=== PATIENT | male | born 1995 | race Caucasian/White ===

== ENCOUNTER 2018-08-28 17:57 | Inpatient (IN) ==
[2018-08-28 22:28] LABS: Baso # (Auto) 0.1 th/mm3 (0.0-0.2); Baso % (Auto) 0.8 % (0.0-2.0); Eos # (Auto) 0.1 th/mm3 (0.0-0.4); Eos % (Auto) 0.6 % (0.0-4.0); Hematocrit 43.4 % (39.0-51.0); Hemoglobin 15.4 gm/dL (13.0-17.0); Lymph # (Auto) 2.5 th/mm3 (1.0-4.8); Lymph % (Auto) 23.1 % (9.0-44.0); Mean Corpuscular HGB Conc 35.4 % (32.0-36.0); Mean Corpuscular Volume 87.6 fL (80.0-100.0); Mean Platelet Volume 10.4 fL (7.0-11.0); Mono % (Auto) 9.3 % (0.0-8.0); Neut # (Auto) 7.2 th/mm3 (1.8-7.7); Neut % (Auto) 66.2 % (16.0-70.0); Platelet Count 272 th/mm3 (150-450); Red Blood Count 4.96 mil/mm3 (4.50-5.90); White Blood Count 10.8 th/mm3 (4.0-11.0)
[2018-08-28 22:29] LABS: Amphetamine Screen,Urine Pos (Neg); Barbiturate Screen,Urine Neg (Neg); Cannabinoid Screen,Urine Neg (Neg); Cocaine Screen,Urine Neg (Neg)
[2018-08-28 22:41] LABS: Opiate Screen,Urine Neg (Neg)
[2018-08-28 22:44] LABS: Albumin 4.2 g/dL (3.4-5.0); Anion Gap 8 meq/L (5-15); Aspartate Aminotransferase 15 U/L (15-37); Blood Urea Nitrogen 14 mg/dL (7-18); Carbon Dioxide 28.4 meq/L (21.0-32.0); Chloride 101 meq/L (98-107); Glomerular Filtration Rate 84 mL/min (>89); Glucose,Random 75 mg/dL (74-106); Potassium 3.7 meq/L (3.5-5.1); Sodium 137 meq/L (136-145)
[2018-08-28 22:45] LABS: Alanine Aminotransferase 23 U/L (12-78)
[2018-08-28 22:48] LABS: Alkaline Phosphatase 83 U/L (45-117); Total Protein 8.1 g/dL (6.4-8.2)
--- NOTE | 2018-08-29 00:32 | ED ---
HPI General Chief Complaint: Psychiatric Symptoms Stated Complaint: Pysch Eval/NSBPD Time Seen by Provider: 08/28/18 19:28 Source: patient and police Mode of arrival: other (Police) Limitations: no limitations History of Present Illness HPI Narrative: Patient presents to our facility under a Clark act. Patient was discharged from our facility after being psychiatrically cleared earlier this morning. Since he got home he took a bottle of his psychiatric medications from his mother and flushed them down the toilet. Mother called the police and police Clark acted him due to him "being a harm to himself". Patient states that he does not want to harm himself or others but just does not want to take his medications because he thinks that they are making him sicker MD complaint: Reports other History of same: Yes Relieving factors: none Exacerbating factors: none Context: Reports not taking psychiatric medications Associated psychiatric symptoms: Denies depression, suicidal ideation, homicidal ideation, racing thoughts, auditory hallucinations and visual hallucinations Associated symptoms: Denies confusion, headache, shortness of breath, nausea, vomiting, syncope and insomnia Related Data Home Medications Medication Instructions Recorded Confirmed amphetamine sulfate 10 mg PO TID 08/28/18 08/28/18 Allergies Allergy/AdvReac Type Severity Reaction Status Date / Time No Known Allergies Allergy Verified 08/27/18 15:18 Review of Systems ROS: all other systems reviewed are negative [facility] Medical History Medical History ADD (attention deficit disorder) (Acute) Hearing voices (Acute) Social History Social History Substance History: Active Abuse Second Hand Smoke Exposure: Yes Smoking Status: Current every day smoker Tobacco Type: E-Cigarettes How Often Do You Have a Drink Containing Alcohol: 2 to 3 times a week Recent Travel in [place] within the Last 8 Weeks: No Recent Out of Country Travel within the Last 8 Weeks: No Substance Abuse Detail Alcohol: Substance Use Status: Active Immunization History Tetanus Immunization: <5 Years Course Initial Documented Vital Signs Temperature 98.4 F 08/28/18 18:19 Pulse Rate 128 H 08/28/18 18:19 Respiratory Rate 20 08/28/18 18:19 Blood Pressure 131/78 08/28/18 18:19 Pulse Oximetry 97 08/28/18 18:19 Last Documented Vital Signs Temperature 98.4 F 08/28/18 18:23 Pulse Rate 128 H 08/28/18 18:23 Respiratory Rate 20 08/28/18 18:23 Blood Pressure 131/78 08/28/18 18:23 Pulse Oximetry 97 08/28/18 18:23 Medical Decision Making MDM Narrative Medical decision making narrative: Patient presents to our facility under a Clark act. Patient was discharged from our facility after being psychiatrically cleared earlier this morning. Since he got home he took a bottle of his psychiatric medications from his mother and flushed them down the toilet. Mother called the police and police Clark acted him due to him "being a harm to himself". Patient states that he does not want to harm himself or others but just does not want to take his medications because he thinks that they are making him sicker Patient has a blood pressure 131/78, pulse is 128, temperature is 98.4, O2 sat is 97 Patient will receive basic lab work and a urine drug screen Drug screen is positive for amphetamines which would explain the tachycardia Patient is resting comfortably in bed Patient is medically cleared at 2100 Await psychiatric evaluation in the morning Medical Screen Exam Complete: Yes Emergency Medical Condition: Yes Differential Diagnosis Differential Diagnosis: Anxiety, depression, schizophrenia, noncompliance with medication, drug abuse Lab Data Lab results reviewed: Yes I reviewed the patient's lab results. Result diagrams: 08/28/18 18:30 08/28/18 18:30 Lab Results 08/28/18 08/28/18 08/28/18 Range/Units 18:30 18:30 21:09 WBC 10.8 (4.0-11.0) th/mm3 RBC 4.96 (4.50-5.90) mil/mm3 Hgb 15.4 (13.0-17.0) gm/dL Hct 43.4 (39.0-51.0) % MCV 87.6 (80.0-100.0) fL MCH 31.0 (27.0-34.0) pg MCHC 35.4 (32.0-36.0) % RDW 13.0 (11.6-17.2) % Plt Count 272 (150-450) th/mm3 MPV 10.4 (7.0-11.0) fL Neut % (Auto) 66.2 (16.0-70.0) % Lymph % (Auto) 23.1 (9.0-44.0) % [place] % (Auto) 9.3 H (0.0-8.0) % Eos % (Auto) 0.6 (0.0-4.0) % Baso % (Auto) 0.8 (0.0-2.0) % Neut # (Auto) 7.2 (1.8-7.7) th/mm3 Lymph # (Auto) 2.5 (1.0-4.8) th/mm3 [place] # (Auto) 1.0 H (0.0-0.9) th/mm3 Eos # (Auto) 0.1 (0.0-0.4) th/mm3 Baso # (Auto) 0.1 (0.0-0.2) th/mm3 WBC Differential . Differential Comment Auto diff final Sodium 137 (136-145) meq/L Potassium 3.7 (3.5-5.1) meq/L Chloride 101 (98-107) meq/L Carbon Dioxide 28.4 (21.0-32.0) meq/L Anion Gap 8 (5-15) meq/L BUN 14 (7-18) mg/dL Creatinine 1.10 (0.60-1.30) mg/dL Estimated GFR 84 L (>89) mL/min Random Glucose 75 (74-106) mg/dL Calcium 9.0 (8.5-10.1) mg/dL Total Bilirubin 0.7 (0.2-1.0) mg/dL AST 15 (15-37) U/L ALT 23 (12-78) U/L Alkaline Phosphatase 83 (45-117) U/L Total Protein 8.1 (6.4-8.2) g/dL Albumin 4.2 (3.4-5.0) g/dL Urine Opiates Screen Neg (Neg) Ur Barbiturates Screen Neg (Neg) Ur Amphetamines Screen Pos H (Neg) U Benzodiazepines Scrn Neg (Neg) Urine Cocaine Screen Neg (Neg) U Cannabinoids Screen Neg (Neg) Discharge Plan Discharge Disposition Patient Disposition: Sign Out(ED Internal Use Only) Discharge Condition Condition: Stable Discharge Details Diagnosis: Chronic schizophrenia, Medical clearance for psychiatric admission Physicians Team ED Provider: Jose Morales ED Midlevel Provider: Delaney Mulligan Primary Care Provider: Primary Care Rebekah Oconnor Rxs /Orders / Referrals /Forms Prescriptions: No Action amphetamine sulfate 10 mg Tablet 10 mg PO TID RF: 0 Status ED Status: Medically Cleared
[2018-08-29] MEDS ORDERED: Aluminum/Magnesium/Simethacone Susp 30 ML UDC PO PRN (10:03)
[2018-08-29] MEDS ORDERED: Bisacodyl 10 MG Supp RECTAL PRN (10:03)
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
[2018-08-29] MEDS ORDERED: Influenza (Quadrivalent) Vaccine 0.5 ML Syringe IM ONE (16:00)
[2018-08-29] MEDS: Senna/Docusate Sodium 8.6/50 MG Tablet PO SCH (20:36)
[2018-08-30 07:26] LABS: Anion Gap 6 meq/L (5-15); Blood Urea Nitrogen 13 mg/dL (7-18); Calcium 8.3 mg/dL (8.5-10.1); Carbon Dioxide 30.5 meq/L (21.0-32.0); Chloride 105 meq/L (98-107); Cholesterol 118 mg/dL (120-200); Glomerular Filtration Rate Greater Than 89 mL/min (>89); Glucose,Random 95 mg/dL (74-106); Potassium 3.9 meq/L (3.5-5.1); Sodium 141 meq/L (136-145); Triglycerides 76 mg/dL (42-150)
[2018-08-30 07:28] LABS: Chol/HDL Ratio 2.39 Ratio; HDL Cholesterol 49.2 mg/dL (40.0-60.0); LDL Cholesterol,Calculated 54 mg/dL (0-99)
[2018-08-30] MEDS: Senna/Docusate Sodium 8.6/50 MG Tablet PO SCH ×2 (08:59→21:01)
[2018-08-30] MEDS ORDERED: ARIPiprazole 5 MG Tablet PO SCH (09:00)
--- NOTE | 2018-08-30 09:58 | P.PNPSY ---
Subjective Remarks: Patient initially seen and admitted by Dr. Mobley, his H&P reviewed and agreed with. I have completed the initial psychiatric admission template orders. And did the med C ideation. Dr. Mobley is her first opinion petition supporting Clark act. I agree patient meets criteria for involuntary psychiatric hospitalization thus I will cosign second opinion petition supporting Clark act. Patient seen by me in his room with nurse Jade. Patient thin slender white male with quite curly reddish brown hair. Acknowledges continued auditory hallucinations of a somewhat command controlling nature. He is doing some rationalization as to the present. He is markedly distracted by them. He is supposed he has a history of ADD he has been on Adderall in the past and also on Resporal in the past. There is been noncompliance with the medications. The need to increase aggressive behavior at home with parents. He denies past psychiatric inpatient care. He is urine toxicology on admission is positive for amphetamines. He does acknowledge past use of alcohol marijuana, he is vague about cocaine. Vague about mushrooms. Denies other hallucinogenic's qualities of [place]. At this time he does continue to meet criteria for inpatient psychiatric hospitalization. We will start the patient on Risperdal M-Tab 1 mg twice daily, will discontinue the Abilify. We will discontinue all benzodiazepines he may have Atarax and Benadryl for anxiety. Hopefully to be fairly short stay and can return home with his family follow-up outpatient mental health care Review of Systems All other systems reviewed negative except as stated in HPI Mental Status Examination Appearance: Appropriate Consciousness: Alert Orientation: x4 Motor Activity: Normal gait Speech: Unremarkable Language: Adequate Fund of Knowledge: Adequate Attention and Concentration: Adequate (Slightly distracted) Memory: Unremarkable (Fair) Mood: Other (Euthymic to somewhat restricted) Affect: Other (Decreased range and intensity) Thought Process & Associations: Linear Thought Content: Hallucinations Hallucination Type: Auditory Delusion Type: Other (Somewhat vigilant) Suicidal Ideation: No Suicidal Plan: No Suicidal Intention: No Homicidal Ideation: No Homicidal Plan: No Homicidal Intention: No Insight: Poor Judgment: Poor Assessment and Plan - Assessment (1) Unspecified psychosis Code(s): F29 - Unspecified psychosis not due to a substance or known physiological condition Status: Acute - Plan Plan: Patient remains psychotic with increased auditory hallucinations. I have done second opinion petition supporting Clark act following Dr. Mobley's first opinion. We will start the patient on Resporal M-Tab 1 mg twice daily. 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
[2018-08-30] MEDS ORDERED: Acetaminophen 325 MG Tablet PO PRN (11:00)
[2018-08-30] MEDS: risperiDONE 1 MG ODT PO SCH ×2 (11:21→21:01)
[2018-08-30 16:41] LABS: Hemoglobin A1c 4.9 % (4.3-6.0)
[2018-08-31] MEDS: risperiDONE 1 MG ODT PO SCH ×2 (08:25→20:57)
[2018-08-31] MEDS: Senna/Docusate Sodium 8.6/50 MG Tablet PO SCH ×2 (08:25→20:57)
--- NOTE | 2018-08-31 09:40 | P.TTN ---
- Patient Problems Problems: 1. Discharge planning 2. Medication compliance 3. Knowledge deficit 4. Lack of coping skills - Progress Toward Goals Provider Present: Dr. Guanakito Small Provider Input: 08/31/18: Pt on Risperdal, he is currently meeting criteria as he has not stabilized (pt continues to report hearing voices, acting bizarrely per counselors). Pt scheduled for court for 09/01/18. Expected discharge location is to return to home with pt's parents and continuing with out-pt psychiatric care. Group Spec/RT/OT/SOLOMON Present: Sajan Matthews OT Group Spec/RT/OT/SOLOMON Input: 08/31/18: Pt has attended some groups, he has had limited interactions with others, tending to isolate, pt has been quiet, appropriate, withdrawn. - Discharge Plan 08/31/18. Expected discharge location is to return to home with pt's parents and continuing with out-pt psychiatric care. Pt continues to meet criteria for in-pt status. - Documentation Teaching Recipient: Patient
--- NOTE | 2018-08-31 12:05 | P.PNPSY ---
Subjective Remarks: Patient seen in his room with nurse PAC, chart reviewed, patient compliant medication. Patient is sitting calmly in his room he is clean neat focused with me. He acknowledges the voices of they are diminishing he appear less intrusive. He appears more focused. He denies suicidality or homicidality. There is still some question about his acknowledging his mental illness. However he is able contract with us to do no harm, be compliant with his medications in the community, and to make at least the first outpatient psychiatric follow-up. Thus I will lift Clark act allow patient to sign voluntary consider discharge by the end of the week Review of Systems All other systems reviewed negative except as stated in HPI Mental Status Examination Appearance: Appropriate Consciousness: Alert Orientation: x4 Motor Activity: Normal gait Speech: Unremarkable Language: Adequate Fund of Knowledge: Adequate Attention and Concentration: Adequate (Slightly distracted) Memory: Unremarkable (Fair) Mood: Other (Euthymic to somewhat restricted) Affect: Other (Decreased range and intensity) Thought Process & Associations: Intact Thought Content: Hallucinations Hallucination Type: Auditory Delusion Type: Other (Somewhat vigilant) Suicidal Ideation: No Suicidal Plan: No Suicidal Intention: No Homicidal Ideation: No Homicidal Plan: No Homicidal Intention: No Insight: Poor Judgment: Poor Assessment and Plan - Assessment (1) Unspecified psychosis Code(s): F29 - Unspecified psychosis not due to a substance or known physiological condition Status: Acute - Plan Plan: Patient is showing more focus and attention, voices are diminishing though persistent, compliant medication, denying suicidality or homicidality. Patient no longer meets Clark criteria with Clark act allow patient to sign voluntary Justification for Continued Inpatient Stay: At this time patient with decompensated placed in a lower level of care Discharge Planning: To be determined probable home with family Request Healthcare Surrogate/Guardian Advocate?: No (1) Unspecified psychosis Qualifiers: Psychosis type: brief psychotic disorder Qualified Code(s): F23 - Brief psychotic disorder
[2018-09-01] MEDS: Senna/Docusate Sodium 8.6/50 MG Tablet PO SCH ×2 (08:25→20:45)
[2018-09-01] MEDS: risperiDONE 1 MG ODT PO SCH (08:26)
--- NOTE | 2018-09-01 11:10 | P.PNPSY ---
Subjective Remarks: Patient is seen and office with nurse Patel, chart reviewed, patient compliant medication, patient calm cooperative with me he acknowledges voices persist though they are decreased in frequency and intensity. Though they are still somewhat intrusive. He denies suicidality or homicidality. He continues to state a willingness to cooperate with continuation of medication as an outpatient and psychiatric follow-up. For now continue treatment consider discharge in 24 hours if patient continues to do good Review of Systems All other systems reviewed negative except as stated in HPI Mental Status Examination Appearance: Appropriate Consciousness: Alert Orientation: x4 Motor Activity: Normal gait Speech: Unremarkable Language: Adequate Fund of Knowledge: Adequate Attention and Concentration: Adequate (Slightly distracted) Memory: Unremarkable (Fair) Mood: Other (Euthymic to somewhat restricted mildly dysphoric) Affect: Other (Decreased range and intensity) Thought Process & Associations: Intact Thought Content: Hallucinations Hallucination Type: Auditory (Somewhat decreased) Delusion Type: Other (Somewhat vigilant) Suicidal Ideation: No Suicidal Plan: No Suicidal Intention: No Homicidal Ideation: No Homicidal Plan: No Homicidal Intention: No Insight: Poor Judgment: Poor Assessment and Plan - Assessment (1) Unspecified psychosis Code(s): F29 - Unspecified psychosis not due to a substance or known physiological condition Status: Acute - Plan Plan: Patient calm and cooperative voices persist but decreased in intensity and frequency. Compliant medication. For now continue treatment Justification for Continued Inpatient Stay: At this time patient with decompensated placed on a lower level of care Discharge Planning: Return home with family Request Healthcare Surrogate/Guardian Advocate?: No (1) Unspecified psychosis Qualifiers: Psychosis type: brief psychotic disorder Qualified Code(s): F23 - Brief psychotic disorder
[2018-09-01] MEDS: risperiDONE 2 MG ODT PO SCH (20:45)
[2018-09-02] MEDS: risperiDONE 2 MG ODT PO SCH (08:58)
[2018-09-02] MEDS: Senna/Docusate Sodium 8.6/50 MG Tablet PO SCH (09:01)
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
== END 2018-09-02 13:50 | disposition home or self-care (01) ==
LOC: NEDAMB 17:57 → NEDA 08-29 10:05 → H260 08-29 10:51
PROVIDERS: ADMIT Psychiatry & Neurology Psychiatry; ATTEND Psychiatry & Neurology Psychiatry